=== PATIENT | female | born 1990 | race African-American/Black ===

== ENCOUNTER 2022-02-26 04:58 | Inpatient (IN) | payer SELFPAY ==
[2022-02-26] MEDS ORDERED: METHYLERGONOVINE MALEATE 0.2 MG/ML VIAL IM PRN (05:43)
[2022-02-26] MEDS ORDERED: LIDOCAINE (2%) 20 MG/1 ML VIAL 20 ML MDV INFILTRATI ONE ×2 (05:43→14:52)
[2022-02-26] MEDS ORDERED: miSOPROStol 200 MCG TAB PR PRN (05:43)
[2022-02-26] MEDS ORDERED: LOPERAMIDE 2 MG CAP PO PRN (05:43)
[2022-02-26] MEDS ORDERED: TERBUTALINE 1 MG/1 ML INJ SUB-Q PRN (05:43)
[2022-02-26] MEDS ORDERED: ePHEDrine SULFATE 50 MG/1 ML INJ IV PRN ×2 (05:43→14:00)
[2022-02-26] MEDS ORDERED: fentaNYL 100 MCG/2 ML INJ IV PRN (05:43)
[2022-02-26] MEDS ORDERED: ACETAMINOPHEN 325 MG TAB PO PRN ×2 (05:43→17:14)
[2022-02-26] MEDS ORDERED: CARBOPROST TROMETHAMINE 250 MCG/1 ML INJ IM PRN (05:43)
[2022-02-26] MEDS ORDERED: MINERAL OIL 30 ML ORAL LIQD PO PRN (05:43)
[2022-02-26] MEDS ORDERED: OXYTOCIN 10 UNIT/1 ML INJ IM PRN (05:43)
[2022-02-26] MEDS ORDERED: BUTORPHANOL 2 MG/1 ML INJ IV PRN ×3 (05:43→08:00)
[2022-02-26 05:56] LABS: Hematocrit 33.1 % (30.3-42.9); Hemoglobin 10.6 gm/dl (10.1-14.3); Mean Corpuscular HGB Conc 32 % (30-34); Mean Corpuscular Volume 78 fl (79-97); Platelet Count 169 K/mm3 (140-440); Red Blood Count 4.27 M/mm3 (3.65-5.03)
[2022-02-26] MEDS ORDERED: OXYTOCIN DRIP 30 UNITS/500 ML BAG IV SCH ×3 (06:00→17:14)
--- NOTE | 2022-02-26 07:09 | Ultrasound Report ---
ULTRASOUND OBSTETRIC LIMITED INDICATION / CLINICAL INFORMATION: KEITH. Clinical Gestational Age (GA) in weeks, days: 39 weeks 1 day TECHNIQUE: Transabdominal. COMPARISON: None available. FINDINGS: Single live intrauterine . HEART RATE (beats per minute): 133 AMNIOTIC FLUID INDEX (cm) = 9.1 (normal = 7-24 cm) PRESENTATION: Cephalic. ADDITIONAL FINDINGS: Anterior placenta is free of the os. IMPRESSION: Single live in cephalic presentation. No significant abnormality. Amniotic fluid index is within normal limits, measuring 9.1 cm. Signer Name: Vikash Wing MD Signed: 02/26/2022 7:05 AM Workstation Name: [id number]
--- NOTE | 2022-02-26 07:33 | History and Physical Report ---
History of Present Illness Date of examination: 02/26/22 Date of admission: 02/26/2022 Chief complaint: Leakage of fluid History of present illness: The patient is a 31-year-old at 39-1/7 weeks gestation who presents to OB triage reporting a sudden gush of fluid that continued to leak. This was not preceded by contractions. There was no vaginal bleeding. There is good movement. Contractions began after the sudden gush of fluid. In OB triage, the patient appeared to have gross rupture of membranes. Cervical exam was 4 cm dilated. As such, this fulfills the clinical criteria for Term PROM. The patient is admitted to labor and delivery for management of Term ROM. Past History Past Medical History: no pertinent history Past Surgical History: no surgical history [employer]IC History: abnormal PAP smear Family/Genetic History: none Social history: no significant social history - Obstetrical History Expected Date of Delivery: 03/04/22 Actual Gestation: 39 Week(s) 1 Day(s) : 2 Para: 1 Hx # Term Pregnancies: 1 Number of Pregnancies: 0 Spontaneous Abortions: 0 Induced : 0 Number of Living Children: 1 Medications and Allergies Allergies Allergy/AdvReac Type Severity Reaction Status Date / Time No Known Allergies Allergy Verified 02/26/22 05:25 Active Meds: Active Medications Acetaminophen (Acetaminophen 325 Mg Tab) 650 mg PO Q4H PRN PRN Reason: Pain, Mild (1-3) Butorphanol Tartrate (Butorphanol 2 Mg/1 Ml Inj) 1 mg IV Q2H PRN PRN Reason: Pain, Moderate(4-6) LABOR PAIN Butorphanol Tartrate (Butorphanol 2 Mg/1 Ml Inj) 2 mg IV Q2H PRN PRN Reason: Pain , Severe (7-10) Carboprost Tromethamine (Carboprost Tromethamine 250 Mcg/1 Ml Inj) 250 mcg IM ONCE PRN PRN Reason: Uterine Bleeding Ephedrine Sulfate (Ephedrine Sulfate 50 Mg/1 Ml Inj) 10 mg IV Q2M PRN PRN Reason: Hypotension Fentanyl (Fentanyl 100 Mcg/2 Ml Inj) 100 mcg IV Q2H PRN PRN Reason: Pain,Severe (7-10) LABOR PAIN Oxytocin/Sodium Chloride (Pitocin/Ns 30 Unit/500ml) 30 units in 500 mls @ 2 mls/hr IV TITR RYAN; Protocol Lactated Ringer's (Lactated Ringers) 1,000 mls @ 125 mls/hr IV DIRECT RYAN Oxytocin/Sodium Chloride (Pitocin/Ns 30 Unit/500ml) 30 units in 500 mls @ 40 mls/hr IV DIRECT RYAN; Protocol Loperamide HCl (Loperamide 2 Mg Cap) 2 mg PO ONCE PRN PRN Reason: give with Hemabate Methylergonovine Maleate (Methylergonovine Maleate 0.2 Mg/Ml Vial) 0.2 mg IM ONCE PRN PRN Reason: Uterine Bleeding Mineral Oil (Mineral Oil 30 Ml Oral Liqd) 30 ml PO QHS PRN PRN Reason: Constipation Misoprostol (Misoprostol 200 Mcg Tab) 800 mcg [place] ONCE PRN PRN Reason: Uterine Bleeding Oxytocin (Oxytocin 10 Unit/1 Ml Inj) 10 unit IM ONCE PRN PRN Reason: Uterine Bleeding Terbutaline Sulfate (Terbutaline 1 Mg/1 Ml Inj) 0.25 mg SUB-Q ONCE PRN PRN Reason: Hyperstimulation/Hypertonicity Review of Systems All systems: negative - Vital Signs Vital signs: Vital Signs Pulse BP Pulse Ox 110 H 120/86 100 02/26/22 05:16 02/26/22 05:16 02/26/22 05:16 Temp Pulse Resp BP Pulse Ox 98.2 F 104 H 20 120/86 100 02/26/22 05:20 02/26/22 06:51 02/26/22 05:20 02/26/22 05:20 02/26/22 06:51 - Physical Exam Breasts: Positive: normal Cardiovascular: Regular rate Lungs: Positive: Normal air movement Abdomen: Positive: normal appearance Genitourinary (Female): Positive: normal external genitalia, normal perenium Vulva: both: normal Vagina: Positive: normal moisture Uterus: Positive: enlarged Adnexa: both: normal Anus/Rectum: Positive: normal perianal skin Extremities: Positive: normal Deep Tendon Reflex Grade: Normal +2 - Obstetrical FHR: category 1 Uterine Contraction Monitor Mode: External Cervical Dilatation: 4 Cervical Effacement Percentage: 50 station: -2 Uterine Contraction Frequency (min): 5 Uterine Contraction Pattern: Regular Results Result Diagrams: 02/26/22 05:35 Abnormal lab results 02/26/22 Range/Units 05:35 WBC 11.5 H (4.5-11.0) K/mm3 MCV 78 L (79-97) fl MCH 25 L (28-32) pg RDW 17.0 H (13.2-15.2) % All other labs normal. Ultrasound: pending Assessment and Plan - Patient Problems (1) 39 weeks gestation of Current Visit: Yes Status: Acute Plan to address problem: care is up-to-date at [facility]. She is GBS (-). (2) Full-term PROM with onset of labor within 24 hours of rupture Current Visit: Yes Status: Acute Plan to address problem: The patient has gross ROM that preceded regular an painful contractions. She is now 4 cm dilated in labor. As such, this fulfills the clinical criteria for Term PROM. Admit to Labor and Delivery. Augment labor with Pitocin.
[2022-02-26] MEDS: LACTATED RINGERS 1,000 ML IV SCH ×2 (08:26→11:56)
[2022-02-26] MEDS: ONDANSETRON 4 MG/2 ML INJ IV PRN ×2 (08:52→11:46)
[2022-02-26] MEDS ORDERED: NalbUPHINE 10 MG/1 ML INJ IV PRN (11:10)
--- NOTE | 2022-02-26 11:12 | Event Note ---
Date: 02/26/22 pt evaluated and FHR category I and pt groaning in pain after receiving stadol med earlier. Pelvic /-2. Pt offered an epidural and she accepted. Nurse notified to give pt nubain pain med and bolus in prep for epidural. All questions encouraged and answered. FOB to bedside. Expect .
[2022-02-26] MEDS ORDERED: ePHEDrine SULFATE 50 MG/1 ML INJ ONE (13:24)
[2022-02-26] MEDS ORDERED: NALOXONE 0.4 MG/1 ML INJ IV PRN (14:00)
--- NOTE | 2022-02-26 14:11 | Anesthesia Consultation ---
Anesthesia Consult and Med Hx - Airway Anesthetic Teeth Evaluation: Good ROM Head & Neck: Adequate Mental/Hyoid Distance: Adequate Mallampati Class: Class II Intubation Access Assessment: Probably Good - Pulmonary Exam CTA: Yes - Cardiac Exam Cardiac Exam: RRR - Pre-Operative Health Status ASA Pre-Surgery Classification: ASA2 Proposed Anesthetic Plan: Epidural - Pulmonary Hx Smoking: No Hx Asthma: No Hx Respiratory Symptoms: No SOB: No COPD: No Home Oxygen Therapy: No Hx Pneumonia: No Hx Sleep Apnea: No - Cardiovascular System Hx Hypertension: No Hx Coronary Artery Disease: No Hx Heart Attack/AMI: No Hx Angina: No Hx Percutaneous Transluminal Coronary Angioplasty (PTCA): No Hx Cardia Arrhythmia: No Hx Pacemaker: No Hx Internal Defibrillator: No Hx Valvular Heart Disease: No Hx Heart Murmur: No - Central Nervous System Hx Neuromuscular Disorder: No Hx Seizures: No CVA: No Hx Back Pain: No Hx Psychiatric Problems: No - Gastrointestinal Hx Ulcer: No Hx Gastroesophageal Reflux Disease: Yes - Endocrine Hx Renal Disease: No Hx End Stage Renal Disease: No Hx Cirrhosis: No Hx Liver Disease: No Hx Insulin Dependent Diabetes: No Hx Non-Insulin Dependent Diabetes: Yes (Gestational DM) Hx Thyroid Disease: No Hx Hypothyroidism: No Hx Hyperthyroidism: No - Hematic Hx Anemia: No Hx Sickle Cell Disease: No - Other Systems Hx Alcohol Use: No Hx Substance Use: No Hx Cancer: No Hx Obesity: No
--- NOTE | 2022-02-26 14:13 | Progress Note ---
Labor Epidural - Labor Epidural Start Time: 13:39 Stop Time: 13:59 Performed by:: JESE JUAN Procedure: SANDY at BS. Labs reviewed. Consent signed. TO performed. Pt sitting, environmental services technician maintained. First attempt, dura puncture at L3-4. Second attempt, ALEC at 7cm L4- 5. Cath at 12 cm skin. Pt jluis well. VSS
[2022-02-26] MEDS ORDERED: MINERAL OIL 30 ML ORAL LIQD ONE (14:32)
[2022-02-26] MEDS ORDERED: fentaNYL-BUPIV 2 MCG/ML-0.125% 200 MCG/100 ML BAG EPIDURAL SCH (15:00)
[2022-02-26] MEDS ORDERED: miSOPROStol 200 MCG TAB ONE (15:08)
--- NOTE | 2022-02-26 15:39 | Procedure Note ---
OB Delivery Note - Delivery Date of Delivery: 02/26/22 Surgeon: SARAH JEFFERY Estimated blood loss: other (350cc) - Vaginal Delivery presentation: vertex Delivery position: OA Intrapartum events: shoulder dystocia Delivery induction: misoprostol Delivery augmentation: rupture of membranes Delivery monitor: external FHT, external uterine Route of delivery: Delivery placenta: spontaneous Delivery cord: 3 umbilical vessels Episiotomy: none Delivery laceration: 1st degree, 2nd degree Delivery repair: chromic Anesthesia: epidural Delivery comments: SAVD with shoulder dystocia relieved by Edu, subprapubic pressure and delivery of left posterior arm. Pt sustained 2nd degree perineal and bilateral inner labial/vaginal 1st laceration and mid-urethral 1st degree laceration. Placenta delivered spontaneously with 3vessel cord. Bimanual uterine massage done for uterine atony and pt given cytotec 800mcg per rectum when FOB and pt now declared that they had PPH with the last delivery. Repair of lacerations done wtih 2-0chromic running locked to perineal and figure of 8 to bilateral labial/vaginal lacerations, (one to each side) and interrupted suture centrally x1. - A at 1 minute: 8 at 5 minutes: 9 Infant Gender: Female (wt 3200g, placenta with 1 medium sized clot near the edge.)
[2022-02-26] MEDS ORDERED: miSOPROStol 100 MCG TAB PR PRN (17:14)
[2022-02-26] MEDS ORDERED: LANOLIN/ZINC/DIMETHICONE (LANSINOH) 7 GM TP PRN (17:14)
[2022-02-26] MEDS ORDERED: HYDROCORTISONE 25 MG RECTAL SUPP PR PRN (17:14)
[2022-02-26] MEDS ORDERED: diphenhydrAMINE 25 MG CAP PO PRN (17:14)
[2022-02-26] MEDS ORDERED: BENZOCAINE/MENTHOL 20/0.5% TOP SPRAY 56 GM TP PRN (17:14)
[2022-02-26] MEDS ORDERED: PROMETHAZINE 25 MG TAB PO PRN (17:14)
[2022-02-26] MEDS ORDERED: PROMETHAZINE 25 MG RECT SUPP PR PRN (17:14)
[2022-02-26] MEDS ORDERED: oxyCODONE /ACETAMINOPHEN 5-325MG TAB PO PRN (17:14)
[2022-02-26] MEDS ORDERED: ONDANSETRON 4 MG/2 ML INJ IV PRN (17:14)
[2022-02-26] MEDS ORDERED: MAGNESIUM HYDROXIDE (MOM) ORAL LIQD UDC PO PRN (17:14)
[2022-02-26] MEDS: WITCH HAZEL/ GLYCERIN PAD TP PRN (23:42)
[2022-02-26] MEDS: IBUPROFEN 800 MG TAB PO SCH ×2 (23:43→23:48)
[2022-02-26] MEDS: DOCUSATE SODIUM 100 MG CAP PO SCH (23:47)
[2022-02-27] MEDS: IBUPROFEN 800 MG TAB PO SCH ×3 (05:21→17:28)
--- NOTE | 2022-02-27 08:31 | Progress Note ---
Assessment and Plan A: PPD # 1 - stable P: CBC and HA1C pending Plan discharge for am Subjective - Subjective Date of service: 02/27/22 Principal diagnosis: PPD # 1 - stable Patient reports: appetite normal [place]: doing well Objective - Vital Signs Latest vital signs: Vital Signs Temp Pulse Resp BP BP BP Pulse Ox 02/27/22 05:35 97.9 F 77 16 104/69 100 02/27/22 00:46 97.9 F 66 18 102/69 100 02/26/22 20:20 98.5 F 95 H 18 109/71 99 02/26/22 19:38 97.5 F L 109 H 14 105/57 105/57 99 02/26/22 19:37 104 H 99 02/26/22 18:10 79 99 02/26/22 18:05 96 H 99 02/26/22 18:01 86 109/58 02/26/22 18:00 87 98 02/26/22 17:54 89 99 02/26/22 17:50 91 H 100 02/26/22 17:46 83 107/60 02/26/22 17:44 73 100 02/26/22 17:40 73 100 02/26/22 17:35 82 100 02/26/22 17:32 79 116/63 02/26/22 17:30 79 100 02/26/22 17:24 76 99 02/26/22 17:20 76 100 02/26/22 17:16 80 99/56 02/26/22 17:14 85 100 02/26/22 17:09 84 100 02/26/22 17:04 83 99 02/26/22 17:01 68 104/60 02/26/22 17:00 73 100 02/26/22 16:55 79 100 02/26/22 16:50 78 99 02/26/22 16:46 88 108/62 02/26/22 16:45 86 100 02/26/22 16:39 77 100 02/26/22 16:34 85 99 02/26/22 16:32 82 108/57 02/26/22 16:29 83 100 02/26/22 16:24 76 100 02/26/22 16:19 84 100 02/26/22 16:16 86 115/63 02/26/22 16:14 89 100 02/26/22 16:10 90 100 02/26/22 16:04 82 99 02/26/22 16:02 90 107/62 02/26/22 15:59 81 100 02/26/22 15:54 94 H 100 02/26/22 15:49 80 100 02/26/22 15:47 69 113/67 02/26/22 15:44 75 100 02/26/22 15:39 67 100 02/26/22 15:36 71 108/59 02/26/22 15:34 84 100 02/26/22 15:29 70 100 02/26/22 15:24 74 100 02/26/22 15:19 76 100 02/26/22 15:18 76 110/59 02/26/22 15:16 75 107/59 02/26/22 15:14 78 100 02/26/22 15:09 80 100 02/26/22 15:08 83 104/57 02/26/22 15:04 105 H 99 02/26/22 14:59 88 100 02/26/22 14:54 109 H 100 02/26/22 14:49 124 H 100 02/26/22 14:48 129 H 130/63 02/26/22 14:44 105 H 100 02/26/22 14:39 101 H 100 02/26/22 14:34 85 100 02/26/22 14:33 79 120/64 02/26/22 14:28 104 H 100 02/26/22 14:23 97 H 100 02/26/22 14:18 110 H 100 02/26/22 14:16 90 127/58 02/26/22 14:13 94 H 130/72 99 02/26/22 14:08 97 H 130/75 99 02/26/22 14:05 73 118/59 02/26/22 14:03 79 98 02/26/22 14:02 131 H 173/99 02/26/22 13:58 92 H 120/67 99 02/26/22 13:55 86 119/66 02/26/22 13:53 78 104/64 100 02/26/22 13:50 81 143/73 02/26/22 13:48 89 99 02/26/22 13:46 91 H 121/73 02/26/22 13:43 91 H 117/70 99 02/26/22 13:38 78 100 02/26/22 13:33 71 99 02/26/22 13:28 85 100 02/26/22 13:23 66 99 02/26/22 13:18 79 98 02/26/22 13:14 57 L 120/73 02/26/22 13:13 74 96 02/26/22 13:08 59 L 98 02/26/22 13:07 72 92 02/26/22 13:03 61 99 02/26/22 12:58 74 97 02/26/22 12:53 75 99 02/26/22 12:48 78 100 02/26/22 12:45 69 119/67 02/26/22 12:43 72 98 02/26/22 12:38 93 H 99 02/26/22 12:33 90 97 02/26/22 12:28 70 99 02/26/22 12:26 69 89 02/26/22 12:23 70 99 02/26/22 12:18 88 98 02/26/22 12:16 78 91 02/26/22 12:15 71 121/66 02/26/22 12:13 79 99 02/26/22 12:08 60 99 02/26/22 12:03 68 99 02/26/22 11:58 63 99 02/26/22 11:57 98.1 F 16 99 02/26/22 11:53 83 97 02/26/22 11:48 78 99 02/26/22 11:45 82 16 123/71 02/26/22 11:43 85 100 02/26/22 11:39 85 89 02/26/22 11:38 78 99 02/26/22 11:33 81 100 02/26/22 11:28 78 94 02/26/22 11:24 78 94 02/26/22 11:23 78 96 02/26/22 11:18 79 97 02/26/22 11:14 68 127/78 02/26/22 11:13 79 99 02/26/22 11:08 74 99 02/26/22 11:05 85 89 02/26/22 11:03 83 98 02/26/22 10:58 75 99 02/26/22 10:53 84 99 02/26/22 10:50 90 89 02/26/22 10:48 80 99 02/26/22 10:44 75 113/75 02/26/22 10:43 81 96 02/26/22 10:38 71 99 02/26/22 10:33 88 99 02/26/22 10:28 74 100 02/26/22 10:23 86 99 02/26/22 10:18 75 100 02/26/22 10:14 67 117/74 02/26/22 10:13 71 100 02/26/22 10:02 70 99 02/26/22 09:57 74 99 02/26/22 09:52 78 100 02/26/22 09:47 71 99 02/26/22 09:42 63 99 02/26/22 09:37 70 98 02/26/22 09:32 70 99 02/26/22 09:27 76 100 02/26/22 09:22 82 98 02/26/22 09:17 69 99 02/26/22 09:12 76 97 02/26/22 09:07 80 96 02/26/22 09:02 74 98 02/26/22 08:57 83 98 02/26/22 08:52 93 H 97 02/26/22 08:47 92 H 99 02/26/22 08:42 121 H 98 02/26/22 08:37 82 99 02/26/22 08:32 87 99 Pulse Ox 02/27/22 05:35 02/27/22 00:46 02/26/22 20:20 99 02/26/22 19:38 02/26/22 19:37 02/26/22 18:10 02/26/22 18:05 02/26/22 18:01 02/26/22 18:00 02/26/22 17:54 02/26/22 17:50 02/26/22 17:46 02/26/22 17:44 02/26/22 17:40 02/26/22 17:35 02/26/22 17:32 02/26/22 17:30 02/26/22 17:24 02/26/22 17:20 02/26/22 17:16 02/26/22 17:14 02/26/22 17:09 02/26/22 17:04 02/26/22 17:01 02/26/22 17:00 02/26/22 16:55 02/26/22 16:50 02/26/22 16:46 02/26/22 16:45 02/26/22 16:39 02/26/22 16:34 02/26/22 16:32 02/26/22 16:29 02/26/22 16:24 02/26/22 16:19 02/26/22 16:16 02/26/22 16:14 02/26/22 16:10 02/26/22 16:04 02/26/22 16:02 02/26/22 15:59 02/26/22 15:54 02/26/22 15:49 02/26/22 15:47 02/26/22 15:44 02/26/22 15:39 02/26/22 15:36 02/26/22 15:34 02/26/22 15:29 02/26/22 15:24 02/26/22 15:19 02/26/22 15:18 02/26/22 15:16 02/26/22 15:14 02/26/22 15:09 02/26/22 15:08 02/26/22 15:04 02/26/22 14:59 02/26/22 14:54 02/26/22 14:49 02/26/22 14:48 02/26/22 14:44 02/26/22 14:39 02/26/22 14:34 02/26/22 14:33 02/26/22 14:28 02/26/22 14:23 02/26/22 14:18 02/26/22 14:16 02/26/22 14:13 02/26/22 14:08 02/26/22 14:05 02/26/22 14:03 02/26/22 14:02 02/26/22 13:58 02/26/22 13:55 02/26/22 13:53 02/26/22 13:50 02/26/22 13:48 02/26/22 13:46 02/26/22 13:43 02/26/22 13:38 02/26/22 13:33 02/26/22 13:28 02/26/22 13:23 02/26/22 13:18 02/26/22 13:14 02/26/22 13:13 02/26/22 13:08 02/26/22 13:07 02/26/22 13:03 02/26/22 12:58 02/26/22 12:53 02/26/22 12:48 02/26/22 12:45 02/26/22 12:43 02/26/22 12:38 02/26/22 12:33 02/26/22 12:28 02/26/22 12:26 02/26/22 12:23 02/26/22 12:18 02/26/22 12:16 02/26/22 12:15 02/26/22 12:13 02/26/22 12:08 02/26/22 12:03 02/26/22 11:58 02/26/22 11:57 02/26/22 11:53 02/26/22 11:48 02/26/22 11:45 02/26/22 11:43 02/26/22 11:39 02/26/22 11:38 02/26/22 11:33 02/26/22 11:28 02/26/22 11:24 02/26/22 11:23 02/26/22 11:18 02/26/22 11:14 02/26/22 11:13 02/26/22 11:08 02/26/22 11:05 02/26/22 11:03 02/26/22 10:58 02/26/22 10:53 02/26/22 10:50 02/26/22 10:48 02/26/22 10:44 02/26/22 10:43 02/26/22 10:38 02/26/22 10:33 02/26/22 10:28 02/26/22 10:23 02/26/22 10:18 02/26/22 10:14 02/26/22 10:13 02/26/22 10:02 02/26/22 09:57 02/26/22 09:52 02/26/22 09:47 02/26/22 09:42 02/26/22 09:37 02/26/22 09:32 02/26/22 09:27 02/26/22 09:22 02/26/22 09:17 02/26/22 09:12 02/26/22 09:07 02/26/22 09:02 02/26/22 08:57 02/26/22 08:52 02/26/22 08:47 02/26/22 08:42 02/26/22 08:37 02/26/22 08:32 Intake and Output 02/26/22 02/27/22 02/27/22 22:59 06:59 14:59 Intake Total 440 Output Total 400 Balance 40 Intake: Oral 200 Intake, Free Water 240 Output: Urine 400 Void 400 Other: Total, Intake Amount 200 Total, Output Amount 400 # Voids Indwelling Catheter 1 Void 1 Estimated Blood Loss 350 - Exam Breasts: Present: deferred Cardiovascular: Present: Regular rate Lungs: Present: Clear to auscultation Abdomen: Present: soft Vulva: both: normal Uterus: Present: fundal height below umbilicus Extremities: Present: normal Deep Tendon Reflex Grade: Normal +2 - Labs Labs: Abnormal lab results 02/26/22 Range/Units 08:41 POC Glucose 114 H (70-105) mg/dL
[2022-02-27] MEDS ORDERED: PRENATAL VIT27-FE FUMARATE-FOLIC ACID VIT TAB PO SCH (10:00)
[2022-02-27] MEDS: DOCUSATE SODIUM 100 MG CAP PO SCH (10:22)
[2022-02-27 11:25] LABS: Hematocrit 28.5 % (30.3-42.9); Hemoglobin 9.3 gm/dl (10.1-14.3); Mean Corpuscular HGB Conc 33 % (30-34); Mean Corpuscular Volume 78 fl (79-97); Platelet Count 151 K/mm3 (140-440); Red Blood Count 3.64 M/mm3 (3.65-5.03); Red Cell Distribution Width 16.6 % (13.2-15.2)
[2022-02-28] MEDS: DOCUSATE SODIUM 100 MG CAP PO SCH (00:02)
[2022-02-28] MEDS: IBUPROFEN 800 MG TAB PO SCH ×2 (00:05→06:18)
[2022-02-28] MEDS: WITCH HAZEL/ GLYCERIN PAD TP PRN (03:04)
--- NOTE | 2022-02-28 07:14 | Progress Note ---
Assessment and Plan A: PPD # 2- stable P: Discharge home today Discharge instructions given Subjective - Subjective Principal diagnosis: PPD # 2 - stable Patient reports: appetite normal [place]: doing well Objective - Vital Signs Latest vital signs: Vital Signs Temp Pulse Resp BP Pulse Ox Pulse Ox 02/28/22 00:38 56 L 18 106/70 100 02/27/22 23:00 100 02/27/22 17:09 98.6 F 82 18 119/87 100 02/27/22 12:58 98.1 F 85 18 120/71 99 02/27/22 08:30 98 02/27/22 08:08 98.2 F 68 18 114/75 99 Intake and Output 02/27/22 02/28/22 02/28/22 22:59 06:59 14:59 Intake Total 480 Balance 480 Intake: Intake, Free Water 480 Other: # Voids Void 2 - Exam Breasts: Present: deferred Cardiovascular: Present: Regular rate Lungs: Present: Clear to auscultation Abdomen: Present: soft Vulva: both: normal Uterus: Present: fundal height below umbilicus Extremities: Present: normal Deep Tendon Reflex Grade: Normal +2 - Labs Labs: Abnormal lab results 02/27/22 Range/Units 10:15 RBC 3.64 L (3.65-5.03) M/mm3 Hgb 9.3 L (10.1-14.3) gm/dl Hct 28.5 L (30.3-42.9) % MCV 78 L (79-97) fl MCH 26 L (28-32) pg RDW 16.6 H (13.2-15.2) %
--- NOTE | 2022-02-28 07:31 | Discharge Summary ---
Providers - Providers Date of Admission: 02/26/22 04:59 Date of discharge: 02/28/22 Attending physician: SARAH JEFFERY Primary care physician: SARAH JEFFERY Hospitalization Reason for admission: rupture of membranes Delivery: Laceration: 2nd degree Incision: intact Other procedures: none complications: none Discharge diagnosis: IUP at term delivered [place] baby: female Condition at discharge: Good Disposition: 01 HOME / SELF CARE / HOMELESS Plan - Provider Discharge Summary Activity: routine, no sex for 6 weeks, no strenuous exercise Diet: routine Instructions: routine Additional instructions: [] Smoking cessation referral if applicable(refer to patient education folder for contact #) [] Refer to [facility] Booklet Call your doctor immediately for: * Fever > 100.5 * Heavy vaginal bleeding ( >1 pad per hour) * Severe persistent headache * Shortness of breath * Reddened, hot, painful area to leg or breast * Drainage or odor from incision. * Keep incision clean and dry at all times and follow doctor's instructions regarding bathing/showering - Follow up plan Follow up: SARAH JEFFERY MD [Primary Care Provider] - 6 Weeks
[2022-02-28 09:56] VITALS: BP 124/84
== END 2022-02-28 10:00 | disposition home or self-care (01) | DRG 807 ==
LOC: TRG 04:58 → LD 04:59 → APU 05:03 → LD 07:16 → TRG 07:50 → OB 21:59
PROVIDERS: ADMIT Obstetrics & Gynecology; ATTEND Obstetrics & Gynecology
PROC: 10E0XZZ Delivery of Products of Conception, External Approach (ICD-10-PCS; principal; 2022-02-26)
PROC: 0KQM0ZZ Repair Perineum Muscle, Open Approach (ICD-10-PCS; 2022-02-26)
PROC: 3E0R3BZ Introduction of Anesthetic Agent into Spinal Canal, Percutaneous Approach (ICD-10-PCS; 2022-02-26)
PROC: 00HU33Z Insertion of Infusion Device into Spinal Canal, Percutaneous Approach (ICD-10-PCS; 2022-02-26)
PROC: 3E0P7VZ Introduction of Hormone into Female Reproductive, Via Natural or Artificial Opening (ICD-10-PCS; 2022-02-26)
PROC: 3E0234Z Introduction of Serum, Toxoid and Vaccine into Muscle, Percutaneous Approach (ICD-10-PCS; 2022-02-27)
DX: O42.02 Full-term premature rupture of membranes, onset of labor within 24 hours of rupture (principal); Z37.0 Single live birth; Z3A.39 39 weeks gestation of pregnancy; O99.62 Diseases of the digestive system complicating childbirth; K21.9 Gastro-esophageal reflux disease without esophagitis; O66.0 Obstructed labor due to shoulder dystocia; O70.1 Second degree perineal laceration during delivery; Z20.822 Contact with and (suspected) exposure to COVID-19
CPT/HCPCS: 36415; 76815; 82962; 83036; 85027; 85461; 86592; 86850; 86900; 86901; 96360; 96361; 96365; 96366; 96374; 96376; G0378; J0595; J0690; J2300; J2405; J2590; J2790; J7120; U0003